=== PATIENT | female | born 1960 | race Two or more races ===

== ENCOUNTER 2020-09-28 12:07 | Emergency (ER) | payer OTHER ==
[~2020-09-28] VITALS: Ht 157.5 cm; Wt 59.0 kg
[2020-09-28 12:41] VITALS: BP 126/84
[2020-09-28] MEDS ORDERED: ACETAMINOPHEN 325 MG TAB PO ONE (12:45)
== END 2020-09-28 12:59 | disposition home or self-care (01) ==
LOC: ER 12:07
DX: S42.302A Unspecified fracture of shaft of humerus, left arm, initial encounter for closed fracture (principal); W18.09XA Striking against other object with subsequent fall, initial encounter; Y93.89 Activity, other specified; Y92.89 Other specified places as the place of occurrence of the external cause; Y99.8 Other external cause status
CPT/HCPCS: 73030